=== PATIENT | male | born 1975 | race African-American/Black ===

== ENCOUNTER 2019-01-04 08:58 | Emergency (ER) | payer OTHER ==
[~2019-01-04] VITALS: Ht 180.3 cm; Wt 49.9 kg
[2019-01-04] MEDS ORDERED: SODIUM CHLORIDE 0.9% 1,000 ML IV ONE ×4 (09:21→12:15)
[2019-01-04] MEDS: SODIUM CHLORIDE 0.9% 1,000 ML IV ONE ×2 (09:45→14:00)
[2019-01-04] MEDS ORDERED: PIPERACILLIN-TAZOB 3.375GM 100 ML IV ONE (09:45)
[2019-01-04] MEDS ORDERED: OMNIPAQUE ORAL SOLN 500ml 12mg/ml PO ONE (09:46)
[2019-01-04 10:20] LABS: Basophils # (auto) 0 uL; Basophils % (auto) 0.1 % (0.0-2.0); Eosinophils # (auto) 0 uL; Eosinophils % (auto) 0.1 % (0.0-7.0); Hematocrit 39.9 % (41.0-53.0); Hemoglobin 12.7 g/dL (13.5-17.5); Lymphocytes # (auto) 1.6 uL; Lymphocytes % (auto) 6.9 % (10.0-50.0); Mean Corpuscular Hemoglobin 27.2 pg (28.0-32.0); Mean Corpuscular Hgb Conc. 31.8 g/dL (32.0-36.0); Mean Corpuscular Volume 85.8 fL (80.0-100.0); Monocytes # (auto) 0.6 uL; Monocytes % (auto) 2.4 % (0.0-12.0); Neutrophils # (auto) 21.1 uL; Neutrophils % (auto) 90.5 % (37.0-80.0); Nucleated Red Blood Cells % 0.3 %; Platelet Count (auto) 413 10^3/uL (140-450); Red Blood Cells 4.66 10^6/uL (4.5-5.90); Red Cell Distribution Width 17.2 % (11.8-14.3); White Blood Cell 23.4 10^3/uL (4.4-10.8)
[2019-01-04] MEDS ORDERED: ONDANSETRON HCL 4 MG/2 ML VIAL ONE (10:21)
[2019-01-04] MEDS ORDERED: ONDANSETRON HCL 4 MG/2 ML VIAL IV ONE (10:30)
[2019-01-04 10:42] LABS: Lactic Acid w/Reflex 4.2 mmol/L (0.4-2.0)
[2019-01-04] MEDS ORDERED: VANCOMYCIN PER PHARMACY 0 MG IV SCH (11:15)
[2019-01-04 11:23] LABS: Albumin 1.8 g/dL (3.4-5.0); Anion Gap 13 (5-15); Calcium 7.9 mg/dL (8.5-10.1); Carbon Dioxide 20 mmol/L (21-32); Chloride 92 mmol/L (98-107); Glucose 128 mg/dL (74-106); Magnesium 2.3 mg/dL (1.6-2.6); Potassium 4.8 mmol/L (3.5-5.1); Sodium 125 mmol/L (136-145)
[2019-01-04 11:29] LABS: Alanine Aminotransferase 20 U/L (16-61); Alkaline Phosphatase 146 U/L (45-117); Aspartate Aminotransferase 28 U/L (15-37); BUN/Creatinine Ratio 44.4; Bilirubin, Total 0.7 mg/dL (0.2-1.0); GFR African American 44 mL/min; GFR Non-African American 36 mL/min; Total Protein 7.1 g/dL (6.4-8.2)
[2019-01-04 11:38] LABS: Blood Urea Nitrogen 96 mg/dL (7-18)
[2019-01-04 12:29] LABS: Urine Bacteria NONE SEEN /hpf (None Seen); Urine Blood 2+ /uL (Negative); Urine Mucus FEW (None Seen); Urine Specific Gravity 1.015 (1.001-1.035); Urine WBC 282 /hpf (0 - 3); Urine WBC Clumps PRESENT /hpf (None Seen)
[2019-01-04] MEDS ORDERED: VANCOMYCIN 1GM/250ML 250 ML IV ONE (13:00)
[2019-01-04 20:43] VITALS: BP 117/81
[2019-01-04] MEDS ORDERED: PIPERACILLIN-TAZOB 3.375GM 100 ML IV SCH (22:00)
[2019-01-05] MEDS ORDERED: VANCOMYCIN 750mg/250ml 250 ML IV SCH (13:00)
== END 2019-01-04 21:09 | disposition short-term general hospital (02) ==
LOC: ER 08:58
DX: A41.9 Sepsis, unspecified organism (principal); N39.0 Urinary tract infection, site not specified; L89.159 Pressure ulcer of sacral region, unspecified stage
CPT/HCPCS: 36415; 36556; 36600; 71045; 71250; 72192; 80053; 81001; 82805; 83605; 83735; 84484; 85025; 87040; 87077; 87086; 87186; 96365; 96366; 96368; 96375; 99291; J2405; J2543; J3370; J7030